=== PATIENT | female | born 1970 | race Caucasian/White ===

== ENCOUNTER 2018-02-09 13:05 | Emergency (ER) | payer BC ==
[~2018-02-09] VITALS: Ht 157.5 cm; Wt 117.0 kg
[~2018-02-09 13:05] MED LIST: ACET250 PO; AZEL137S; CARI350 PO; CETI10; CETI10 PO; Cipro250 MG PO; DULO60 PO; Esgic Tablet1 EACH PO; FENT200LOZ; FLONASE ALLERG9.9 ML; GABA600 PO; HYDACE10B PO; HYDACE5 PO; KETO10 PO; NORT75; Norco 10-325 T1 EACH PO; Norco 5-325 Ta1 EACH PO; Nortriptyline H50 MG PO; OXYACE5T PO; OXYCODONE; PHENO60; PROM25 PO; Percocet 10-321 EACH PO; Pseudoephedrine30 MG PO; Roxicodone5 MG PO; TIZANIDINE HCL4 MG PO; Tizanidine HCl2 MG; ZYRTEC10 M1 PO
[2018-02-09] MEDS ORDERED: GABA300 PO (14:45)
[2018-02-09] MEDS ORDERED: AMLO5 (14:45)
[2018-02-09] MEDS ORDERED: Zanaflex4 M1 PO ×2 (14:46→14:49)
[2018-02-09] MEDS ORDERED: Ultram50 MG PO (14:49)
[2018-02-09] MEDS ORDERED: Prednisone20 MG PO (14:49)
[2018-02-09] MEDS ORDERED: Levaquin500 MG PO (14:49)
== END 2018-02-09 14:55 | disposition home or self-care (01) ==
LOC: ER 13:05
DX: Z76.0 Encounter for issue of repeat prescription (principal); Z88.5 Allergy status to narcotic agent; Z88.8 Allergy status to other drugs, medicaments and biological substances; Z79.899 Other long term (current) drug therapy
CPT/HCPCS: 99281

== ENCOUNTER 2021-03-07 08:13 | Emergency (ER) | payer BC ==
[~2021-03-07] VITALS: Ht 144.8 cm; Wt 51.7 kg
[~2021-03-07 08:13] MED LIST changes: +AMLO5; +GABA300 PO; +Levaquin500 MG PO; +Naprosyn500 MG PO; +Prednisone20 MG PO; +Ultram50 MG PO; +Zanaflex4 M1 PO
[2021-03-07 09:15] LABS: BASOPHILS ABSOLUTE AUTO 0.01 K/mm3 (0.00-0.23); BASOPHILS PERCENT AUTO 0 % (0-2); EOSINOPHILS ABSOLUTE AUTO 0.04 K/mm3 (0.00-0.68); EOSINOPHILS PERCENT AUTO 1 % (0-6); Hematocrit 31.8 % (33.0-51.0); Hemoglobin 10.4 g/dL (11.5-16.0); IMMATURE GRAN ABSOLUTE AUTO 0.01 K/mm3 (0.00-0.10); IMMATURE GRAN PERCENT AUTO 0 % (0-1); LYMPHOCYTES ABSOLUTE AUTO 0.48 K/mm3 (0.84-5.20); LYMPHOCYTES PERCENT AUTO 10 % (21-46); MONOCYTES PERCENT AUTO 10 % (4-13); Mean Corpuscular HGB 33.8 pg (26.0-34.0); Mean Corpuscular HGB Conc 32.7 g/dL (31.5-36.5); Mean Corpuscular Volume 103 fL (80-100); NEUTROPHILS PERCENT AUTO 79 % (41-73); Platelet Count 207 K/mm3 (150-400); RDW Coefficient Variation 13.8 % (11.7-14.2); RDW Standard Deviation 52.6 fL (35.1-46.3); Red Blood Cell Count 3.08 M/mm3 (3.80-5.20); White Blood Cell Count 5.04 K/mm3 (4.00-11.30)
[2021-03-07 09:33] LABS: Alanine Aminotransfer (ALT/SGP 31 U/L (12-78); Albumin, Blood 3.8 g/dL (3.4-5.0); Albumin/Globulin Ratio 1.1 (0.8-1.8); Alk Phos 127 U/L (50-136); Anion Gap 6 mmol/L (6-16); Aspartate Aminotrans (AST/SGOT 24 U/L (12-37); Bilirubin, Total 0.4 mg/dL (0.1-1.0); Blood Urea Nitrogen 39 mg/dL (8-24); Bun/Creatinine Ratio 47.2 (12.0-20.0); CO2, Blood 26 mmol/L (21-32); Calcium, Blood 7.9 mg/dL (8.5-10.1); Chloride, Blood 107 mmol/L (98-108); Creatinine, Blood 0.83 mg/dL (0.40-1.00); Globulin, Blood 3.5 g/dL (2.2-4.0); Glomerular Filtration Rate >60 (60-); Glucose, Blood 81 mg/dL (70-99); Potassium, Blood 3.9 mmol/L (3.5-5.5); Sodium, Blood 139 mmol/L (136-145); Total Protein, Blood 7.3 g/dL (6.4-8.2); Troponin I <0.015 ng/mL (0.000-0.040)
[2021-03-07] MEDS ORDERED: Revlimid10 MG PO (14:19)
[2021-03-07] MEDS ORDERED: ELIQUIS5 M9 PO (14:34)
== END 2021-03-07 14:52 | disposition home or self-care (01) ==
LOC: ER 08:13
PROVIDERS: Emergency Medicine
DX: I82.412 Acute embolism and thrombosis of left femoral vein (principal); I82.432 Acute embolism and thrombosis of left popliteal vein; Z88.5 Allergy status to narcotic agent; Z88.8 Allergy status to other drugs, medicaments and biological substances; Z79.899 Other long term (current) drug therapy
CPT/HCPCS: 71045; 71260; 80053; 83880; 84484; 85025; 93005; 93010; 93970; 96374-59; 96375-59; 99284-25; J1170; J1642; J2270; J2405; Q9967

== ENCOUNTER 2021-05-22 06:19 | Emergency (ER) | payer BC ==
[~2021-05-22] VITALS: Ht 147.3 cm; Wt 49.9 kg
[~2021-05-22 06:19] MED LIST changes: +ELIQUIS5 M9 PO; +Revlimid10 MG PO
[2021-05-22] MEDS ORDERED: Neurontin 300300 MG PO (07:18)
== END 2021-05-22 07:53 | disposition home or self-care (01) ==
LOC: ER 06:19
DX: M54.5 Low back pain (principal); G89.29 Other chronic pain; Z88.5 Allergy status to narcotic agent; Z88.8 Allergy status to other drugs, medicaments and biological substances; Z79.01 Long term (current) use of anticoagulants; Z79.899 Other long term (current) drug therapy
CPT/HCPCS: 99282; A9270

== ENCOUNTER 2022-05-07 16:09 | Emergency (ER) | payer BC ==
[~2022-05-07] VITALS: Ht 157.5 cm; Wt 47.6 kg
[~2022-05-07 16:09] MED LIST changes: +Neurontin 300300 MG PO; +TIZA4 PO
[2022-05-07] MEDS ORDERED: Percocet 5-3251 EACH PO (17:55)
== END 2022-05-07 18:20 | disposition home or self-care (01) ==
LOC: ER 16:09
DX: S70.02XA Contusion of left hip, initial encounter (principal); R51.9 Headache, unspecified; Z79.899 Other long term (current) drug therapy; Z88.8 Allergy status to other drugs, medicaments and biological substances; Z88.5 Allergy status to narcotic agent; Z86.711 Personal history of pulmonary embolism; W01.0XXA Fall on same level from slipping, tripping and stumbling without subsequent striking against object, initial encounter; Y92.009 Unspecified place in unspecified non-institutional (private) residence as the place of occurrence of the external cause
CPT/HCPCS: 73502

== ENCOUNTER 2022-05-13 03:23 | Emergency (ER) | payer BC ==
[~2022-05-13] VITALS: Ht 154.9 cm; Wt 47.6 kg
[~2022-05-13 03:23] MED LIST changes: +Percocet 5-3251 EACH PO
[2022-05-13] MEDS ORDERED: Percocet 5-3251 EACH PO (04:07)
== END 2022-05-13 07:50 | disposition home or self-care (01) ==
LOC: ER 03:23
DX: R10.32 Left lower quadrant pain (principal); M25.552 Pain in left hip; G89.29 Other chronic pain; K59.00 Constipation, unspecified; Z86.711 Personal history of pulmonary embolism; Z88.5 Allergy status to narcotic agent; Z88.8 Allergy status to other drugs, medicaments and biological substances; Z79.899 Other long term (current) drug therapy
CPT/HCPCS: 72192; A9270; J1885; J2550

== ENCOUNTER → 2022-05-16 | Outpatient (CLI) | payer BC | END | disposition home or self-care (01) | LOC: LAB 17:32 → LAB SHORT 17:32 | PROVIDERS: Family Medicine | DX: Z51.81 Encounter for therapeutic drug level monitoring (principal); Z79.899 Other long term (current) drug therapy | CPT/HCPCS: G0480 ==